=== PATIENT | female | born 1985 | race Caucasian/White ===

== ENCOUNTER → 2017-11-10 | Outpatient (CLI) | payer OTHER | LOC: FIMAGING 11:32 | PROVIDERS: ATTEND Advanced Practice Midwife | DX: Z36.89 Encounter for other specified antenatal screening (principal); Z3A.24 24 weeks gestation of pregnancy ==

== ENCOUNTER 2018-02-17 17:20 | Observation (INO) | payer OTHER | END 2018-02-17 18:55 | disposition home or self-care (01) | LOC: FLD 17:20 | PROVIDERS: ADMIT Advanced Practice Midwife; ATTEND Advanced Practice Midwife | DX: Z03.71 Encounter for suspected problem with amniotic cavity and membrane ruled out (principal); Z3A.38 38 weeks gestation of pregnancy | CPT/HCPCS: 59025; G0378 ==

== ENCOUNTER 2018-02-27 09:10 | Inpatient (IN) | payer OTHER ==
[2018-02-27] MEDS ORDERED: IBUPROFEN 600 MG TAB PO PRN (09:25)
[2018-02-27] MEDS ORDERED: TERBUTALINE SULFATE 1 MG/ML VIAL IV PRN (09:25)
[2018-02-27] MEDS ORDERED: AMPICILLIN SODIUM 2 GM in NS 100 ML IV ONE (09:25)
[2018-02-27] MEDS ORDERED: OXYTOCIN/RINGERS LACTATE 1,000 ML IV PRN (09:25)
[2018-02-27] MEDS ORDERED: LIDOCAINE 1% 300 MG/30 ML SDV SC PRN (09:25)
[2018-02-27] MEDS ORDERED: OLIVE OIL 118 ML BTL MISC PRN (09:25)
[2018-02-27] MEDS ORDERED: MISOPROSTOL 200 MCG TAB PR PRN (09:25)
[2018-02-27] MEDS ORDERED: EPSOM SALT 454 GM TP PRN (09:25)
[2018-02-27] MEDS ORDERED: LR 1,000 ML IV PRN (09:25)
[2018-02-27] MEDS ORDERED: AMPICILLIN SODIUM 2 GM/10 ML VIAL ONE (09:29)
[2018-02-27] MEDS ORDERED: LIDOCAINE 1% 300 MG/30 ML SDV ONE (09:34)
[2018-02-27] MEDS ORDERED: TERBUTALINE SULFATE 1 MG/ML VIAL ONE (09:35)
[2018-02-27] MEDS ORDERED: MISOPROSTOL 200 MCG TAB ONE (09:35)
[2018-02-27] MEDS ORDERED: OXYTOCIN 10 UNIT/ML VIAL ONE (09:35)
[2018-02-27] MEDS ORDERED: OLIVE OIL 118 ML BTL ONE (09:35)
[2018-02-27] MEDS ORDERED: AMMONIA AROMATIC 1 EACH AMP IH ONE (09:35)
[2018-02-27 10:01] LABS: PLATELET COUNT 330 10^3/uL (150-400)
[2018-02-27] MEDS ORDERED: SIMETHICONE 80 MG TAB CHEW PO PRN (12:19)
[2018-02-27] MEDS ORDERED: HYDROCORTISONE 0.5% CREAM TP PRN (12:19)
--- NOTE | 2018-02-27 12:23 | OBDEL ---
Info Type: Vaginal Presentation at Delivery: Vertex L&D Analgesia/Anesthesia Type: Nitrous GBS+: Yes Antibiotic Used for + GBS: Ampicillin (x1) Intrapartum Medications: Discontinued Medications Generic Name Dose Route Start Last Admin Trade Name Mayte PRN Reason Stop Dose Admin Ampicillin Sodium 2 gm/ Sodium 110 mls @ 220 mls/hr 02/27/18 09:25 02/27/18 09:40 Chloride IV 02/27/18 09:54 110 mls ONCE ONE Administration Protocol - Hospital Course Intrapartum: 02/27/18 12:19 Indications for Delivery: Spontaneous Labor Vaginal Delivery - Delivery Provider Delivery Physician/CNM: Lorrie Wakefield - Labor and Delivery Onset of Contractions Date: 02/27/18 Onset of Contractions Time: 01:00 Onset of Contractions Type: Spontaneous Rupture of Membranes Date: 02/27/18 Rupture of Membranes Time: 07:30 Rupture of Membranes Type: Spontaneous Amniotic Fluid Color: Clear Dilation Complete Date: 02/27/18 Dilation Complete Time: 11:48 Placenta Delivery Date: 02/27/18 Placenta Delivery Time: 11:57 Total Hours of Labor: 10 Laceration: 2nd Degree Repair: 3-0, Vicryl Vaginal Sponge Count Correct: Yes Vaginal Needle Count Correct: Yes Vaginal Sweep Performed: Yes EBL: 300 cc Delivery Events: None Delivery Comment: A viable male born at 1152 over intact perineum under nitrous with 8 an 9 Apgars. Delayed cord clamping x 60 sec. Placenta delivered intact spontaneously with 3-vc. Inspection revealed 2 degree lac repaired with 3-0 Vicryl under local-1% Plain Lidocaine. No complications. [place] Data ALLIE: 02/25/18 Gestational Age: 40 week(s) and 2 day(s) Min Delivery Date: 02/27/18 Delivery Time: 11:52 Sex of : Male Score (1 Min): 8 Score (5 Min): 9 ICD10 Worksheet Patient Problems: Problems Problem Status Onset (spontaneous vaginal delivery) Acute - ICD10 Problem Qualifiers (1) (spontaneous vaginal delivery)
[2018-02-27] MEDS: IBUPROFEN 600 MG TAB PO SCH ×2 (12:36→18:59)
[2018-02-27] MEDS ORDERED: CALCIUM CARBONATE 500 MG CHEWABLE TAB PO PRN (14:06)
[2018-02-27] MEDS: AMPICILLIN SODIUM 1 GM in NS 100 ML IV SCH (14:50)
[2018-02-27] MEDS: ACETAMINOPHEN 325 MG TAB PO SCH ×2 (18:12→23:56)
[2018-02-28] MEDS: IBUPROFEN 600 MG TAB PO SCH ×4 (01:02→22:02)
[2018-02-28] MEDS: oxyCODONE IR 5 MG TAB PO PRN ×3 (01:40→19:25)
--- NOTE | 2018-02-28 04:37 | PDGENHP ---
History and Physical - Chief Complaint SROM, Spontaneous labor - History of Present Illness 32 yo at 38w6d presented early this AM with SROM (clear fluid) and regular painful contractions. GBS positive, abx started immediately on admission. Would like nitrous for pain control, does not want epidural. Did not have epidural for first labor/delivery. Laboratory Tests 02/15/17 07/31/17 07/31/17 11:06 13:56 13:56 Hgb Hct Plt Count Hemoglobin A1c 5.6 Gestat Glucose Screen RPR NONREACTIVE C.trachomatis RNA (TMA) Hep Bs Antigen NEGATIVE HIV 1&2 Antibody NEGATIVE N.gonorrhoeae RNA (TMA) HPV High Risk Parvovirus B19 IgG Ab Parvovirus B19 IgM Ab Parvovirus Interpret Rubella IgG Antibody 5.58 Group B Strep DNA 07/31/17 08/27/17 08/27/17 13:56 Unknown Unknown Hgb Hct Plt Count Hemoglobin A1c Gestat Glucose Screen RPR C.trachomatis RNA (TMA) NEGATIVE Hep Bs Antigen HIV 1&2 Antibody N.gonorrhoeae RNA (TMA) NEGATIVE HPV High Risk NEGATIVE Parvovirus B19 IgG Ab POSITIVE H Parvovirus B19 IgM Ab NEGATIVE Parvovirus Interpret See Comment Rubella IgG Antibody Group B Strep DNA 12/17/17 01/29/18 02/27/18 12:30 16:01 09:40 Hgb 14.4 Hct 42.4 Plt Count 330 Hemoglobin A1c Gestat Glucose Screen 150 H RPR C.trachomatis RNA (TMA) Hep Bs Antigen HIV 1&2 Antibody N.gonorrhoeae RNA (TMA) HPV High Risk Parvovirus B19 IgG Ab Parvovirus B19 IgM Ab Parvovirus Interpret Rubella IgG Antibody Group B Strep DNA POSITIVE H History Information - Allergies/Home Medication List Allergies/Adverse Reactions: No Known Allergies Allergy (Unverified 02/17/18 18:19) Home Medications: Vit27&Calcium/Iron/FA [ Rx 1 Tablet (RX)] 1 each PO DAILY 02/17 [Last Taken 02/16/18 18:00] I have personally reviewed and updated: family history, medical history, social history, surgical history - Past Medical History no pertinent PMH - Surgical History Reports: no pertinent surgical hx - Social History Smoking Status: Never smoked Review of Systems Review of Systems: ROS: 10pt was reviewed & negative except for what was stated in HPI & below Physical Exam Physical Exam: Temp Pulse Resp BP Pulse Ox 37.2 C 83 16 128/82 H 93 02/27/18 20:15 02/27/18 20:15 02/27/18 20:15 02/27/18 20:15 02/27/18 20:15 Lab Data & Imaging Review 02/27/18 09:40 WBC 12.93 10^3/uL (3.80-9.50) H 02/27/18 09:40 RBC 5.17 10^6/uL (4.18-5.33) 02/27/18 09:40 Hgb 14.4 g/dL (12.6-16.3) 02/27/18 09:40 Hct 42.4 % (38.0-47.0) 02/27/18 09:40 MCV 82.0 fL (81.5-99.8) 02/27/18 09:40 MCH 27.9 pg (27.9-34.1) 02/27/18 09:40 MCHC 34.0 g/dL (32.4-36.7) 02/27/18 09:40 RDW 14.3 % (11.5-15.2) 02/27/18 09:40 Plt Count 330 10^3/uL (150-400) 02/27/18 09:40 MPV 11.1 fL (8.7-11.7) 02/27/18 09:40 Neut % (Auto) 83.4 % (39.3-74.2) H 02/27/18 09:40 Lymph % (Auto) 10.1 % (15.0-45.0) L 02/27/18 09:40 [place] % (Auto) 5.1 % (4.5-13.0) 02/27/18 09:40 Eos % (Auto) 0.8 % (0.6-7.6) 02/27/18 09:40 Baso % (Auto) 0.3 % (0.3-1.7) 02/27/18 09:40 Nucleat RBC Rel Count 0.0 % (0.0-0.2) 02/27/18 09:40 Absolute Neuts (auto) 10.78 10^3/uL (1.70-6.50) H 02/27/18 09:40 Absolute Lymphs (auto) 1.31 10^3/uL (1.00-3.00) 02/27/18 09:40 Absolute Monos (auto) 0.66 10^3/uL (0.30-0.80) 02/27/18 09:40 Absolute Eos (auto) 0.10 10^3/uL (0.03-0.40) 02/27/18 09:40 Absolute Basos (auto) 0.04 10^3/uL (0.02-0.10) 02/27/18 09:40 Absolute Nucleated RBC 0.00 10^3/uL (0-0.01) 02/27/18 09:40 Immature Gran % 0.3 % (0.0-1.1) 02/27/18 09:40 Immature Gran # 0.04 10^3/uL (0.00-0.10) 02/27/18 09:40 Patient ABO/Rh A NEGATIVE 02/27/18 13:00 Antibody Screen TNP 02/27/18 13:00 Antibody Identification SIG ANTIBODIES RULED OUT 02/27/18 09:40 Screen NEGATIVE (NEG) 02/27/18 13:00 Bld Prod Order Rhogam READY 02/27/18 13:00 Assessment & Plan Assessment: 32 yo at 38w6d presents in spontaneous labor, ruptured, clear fluid. - Routine cares, Ampicillin started STAT on arrival. - Expectant mgmt, does not want epidural, will try nitrous. Labor Progress Note - SVE Dilation (cm): 5 Effacement (%): 80 Station: -1 Membranes: SROM Amniotic Fluid Color: Clear Dilation Complete Date: 02/27/18 Dilation Complete Time: 11:48 - Contraction Pattern Assessment Current Contraction Pattern: Regular - FHR Assessment Min FHR (bpm): 140 FHR Pattern Variability: Moderate FHR Category: 1 - AP Antepartum Course:
[2018-02-28] MEDS: ACETAMINOPHEN 325 MG TAB PO SCH ×3 (06:05→19:21)
--- NOTE | 2018-02-28 10:11 | OBGCSDC ---
General Delivery Information - General Info : 3 Para: 2 Abortions: 0 Type: Vaginal L&D Analgesia/Anesthesia Type: Nitrous Admission Date: 02/27/18 Labs: Patient ABO/Rh A NEGATIVE 02/27/18 13:00 Hct 33.4 % (38.0-47.0) L 02/28/18 04:24 - Hospital Course Antepartum: Antepartum : 02/28/18 10:09 S) Pt doing well, reports min pain and bleeding. she is ambulating and voiding without difficulty. She is . She desires discharge home today. O) VSS, afebrile constitutional: WNWF, A&Ox3 HEENT: normocephalic, atraumatic, supple Heart: RRR, No murmur Chest: CTA-B Abdomen: Soft, nontender Uterus: Firm at U-2 Lochia: Minimal rubra Perineum: Intact, healing well Extremities: Trace edema, and negative Alice's sign Neuro: Grossly normal A) [id number] S/P PPD#1 P) Discharge home today Continue Pelvic rest x6wks Discussed danger signs (infection, preeclampsia, depression, heavy bleeding, etc ) RTO in 2/4/6 weeks 02/28/18 10:10 Vaginal - Delivery Provider Delivery Physician/CNM: Lorrie Wakefield - Diagnosis Labor: Spontaneous Rupture of Membranes Type: Spontaneous Amniotic Fluid Color: Clear Laceration: 2nd Degree Repair: 3-0, Vicryl Delivery Events: None - Delivery EBL: 300 cc [place] Data ALLIE: 02/25/18 Gestational Age: 40 week(s) and 3 day(s) Min Delivery Date: 02/27/18 Delivery Time: 11:52 Sex of : Male [place] Weight (gm): 3442 g Score (1 Min): 8 Score (5 Min): 9 Discharge Information - Discharge Information Condition: Good Instruction/Follow Up: Two Weeks, Four Weeks, Six Weeks
[2018-02-28] MEDS: DOCUSATE SODIUM 100 MG CAP PO PRN ×2 (10:59→19:21)
[2018-03-01] MEDS: ACETAMINOPHEN 325 MG TAB PO SCH ×3 (01:27→13:54)
[2018-03-01] MEDS: IBUPROFEN 600 MG TAB PO SCH ×2 (04:00→11:19)
[2018-03-01] MEDS: DOCUSATE SODIUM 100 MG CAP PO PRN (09:02)
[2018-03-01 09:12] VITALS: BP 107/71
[2018-03-01] MEDS: oxyCODONE IR 5 MG TAB PO PRN (11:19)
--- NOTE | 2018-03-01 11:31 | OBPP ---
Progress Note Assessment/Plan: Assessment: DC home today - RTC 4 and 6 wks. BEN Subjective/ Course: 02/28/18 10:09 S) Pt doing well, reports min pain and bleeding. she is ambulating and voiding without difficulty. She is . She desires discharge home today. O) VSS, afebrile constitutional: WNWF, A&Ox3 HEENT: normocephalic, atraumatic, supple Heart: RRR, No murmur Chest: CTA-B Abdomen: Soft, nontender Uterus: Firm at U-2 Lochia: Minimal rubra Perineum: Intact, healing well Extremities: Trace edema, and negative Alice's sign Neuro: Grossly normal A) [id number] S/P PPD#1 P) Discharge home today Continue Pelvic rest x6wks Discussed danger signs (infection, preeclampsia, depression, heavy bleeding, etc ) RTO in 2/4/6 weeks 02/28/18 10:10 03/20/18 08:45 Pt ended up staying overnight one additional night after the above note due to baby issues. Doing well this AM - ready for home. Objective: 02/28/18 04:24 Patient ABO/Rh A NEGATIVE 02/27/18 13:00 Temp Pulse Resp BP Pulse Ox 37.1 C 87 18 107/71 94 03/01/18 09:07 03/01/18 09:07 03/01/18 09:07 03/01/18 09:07 02/28/18 20:00 Uterine Position/Fundal Height: At Umbilicus Uterine Tone: Firm
== END 2018-03-01 14:00 | disposition home or self-care (01) | DRG 775 ==
LOC: FLD 09:10 → FOB 18:17
PROVIDERS: ADMIT Obstetrics & Gynecology; ATTEND Obstetrics & Gynecology
PROC: 10E0XZZ Delivery of Products of Conception, External Approach (ICD-10-PCS; principal; 2018-02-27)
PROC: 0KQM0ZZ Repair Perineum Muscle, Open Approach (ICD-10-PCS; principal; 2018-02-27)
PROC: 3E03329 Introduction of Other Anti-infective into Peripheral Vein, Percutaneous Approach (ICD-10-PCS; principal; 2018-02-27)
DX: O42.02 Full-term premature rupture of membranes, onset of labor within 24 hours of rupture (principal); O36.0130 Maternal care for anti-D [Rh] antibodies, third trimester, not applicable or unspecified; O99.824 Streptococcus B carrier state complicating childbirth; O70.1 Second degree perineal laceration during delivery; Z3A.40 40 weeks gestation of pregnancy; Z37.0 Single live birth
CPT/HCPCS: J0290; J2590; J3105